=== PATIENT | female | born 1980 | race Caucasian/White ===

== ENCOUNTER 2020-06-09 21:52 | Outpatient (REF) | payer MEDICAID, SELFPAY ==
[2020-06-09 21:57] LABS: Abs Immature Grans 0.01 k/cumm (0.0-0.09); Absolute Basophil Count 0.02 k/cumm (0.0-0.2); Absolute Eosinophil Count 0.07 k/cumm (0.0-0.7); Absolute Lymphocyte Count 1.49 k/cumm (1.2-3.4); Absolute Monocyte Count 0.47 k/cumm (0.11-0.7); Absolute Neutrophil Count 5.65 k/cumm (1.2-6.7); Basophils % 0.3; Eosinophils % 0.9; HCT 39.7 % (36.0-46.0); HGB 13.3 g/dL (12.0-15.5); Immature Grans % 0.1 %; Lymphocytes % 19.3; Mean Corp. HGB Concentration 33.5 g/dL (32.0-36.0); Mean Corpuscular Hemoglobin 35.3 pg (27.0-33.0); Mean Corpuscular Volume 105.3 fL (80-95); Mean Platelet Volume 11.6 fL (8.0-11.0); Monocytes % 6.1; Neutrophils % 73.3; Platelet Count 245 x1000/uL (130-400); RBC 3.77 m/cumm (4.00-5.20); RBC Distribution Width 13.9 % (11.7-14.6); White Blood Cell Count 7.71 k/cumm (4.4-10.8)
[2020-06-09 22:15] LABS: ALT 23 U/L (14-59); AST 29 U/L (15-37); Albumin 4.1 g/dL (3.4-5.0); Alkaline Phosphatase 70 U/L (46-116); BUN 18 mg/dL (7-18); Bilirubin, Total 0.9 mg/dL (0.2-1.0); CREATININE 0.77 mg/dL (0.55-1.02); Calcium 9.2 mg/dL (8.5-10.1); Calculated LDL 72 mg/dL (<100); Chloride 101 mmol/L (98-107); Cholesterol 159 mg/dL (<200); Glucose 106 mg/dL (74-106); HDL Cholesterol 58 mg/dL (40-60); Potassium 3.9 mmol/L (3.5-5.1); Sodium 138 mmol/L (136-145); Total Protein 6.9 g/dL (6.4-8.2); Triglyceride 146 mg/dL (<150)
[2020-06-09 22:20] LABS: Macrocytosis 1+
== END 2020-06-09 22:12 ==
LOC: NCHCN 21:52
PROVIDERS: PCP Internal Medicine; Visit Provider Physician Assistant
DX: K62.5 Hemorrhage of anus and rectum (principal)
CPT/HCPCS: 80053; 80061; 84443; 85025

== ENCOUNTER 2022-10-09 11:57 | Outpatient (REF) | payer MEDICAID, SELFPAY ==
--- NOTE | 2022-10-09 11:15 | PAPFT_PTH ---
PATIENT: Cordelia Reyes LOC: [facility]#:[id number] AGE/SX: 42/F ROOM: RE10/09/[address]: Felicia Zhao : 1980 BED: DIS: 10/09/2022 SPEC #: [id number] RECD: 10/09/22 18:30 STATUS: PACO REQ #: [id number] DANIEL: 10/09/22 11:[address] Cytology RECD BY: Jennifer Mcginnis ENTERED: 10/09/22 18:30 SP TYPE: PAPFT OTHR DR: Osmin Monaco Tissues: 1 - CX/ENDOCX FOR PAP SMEARS Procedures: PAP THIN PREP/[facility] Screening HPV DNA PROBE Comments: (CHLAMYDIA/GC)
[2022-10-09 20:13] LABS: Hemoglobin A1C 5.1 % (<5.7)
[2022-10-09 20:25] LABS: ALT 40 U/L (14-59); AST 70 U/L (15-37); Albumin 4.4 g/dL (3.4-5.0); Alkaline Phosphatase 88 U/L (46-116); Anion Gap 10.3 mmol/L (3-11); BUN 19 mg/dL (7-18); Bilirubin, Total 2.3 mg/dL (0.2-1.0); CO2 26.7 mmol/L (21.0-32.0); CREATININE 0.9 mg/dL (0.55-1.02); Calcium 9.1 mg/dL (8.5-10.1); Calculated LDL 42 mg/dL (<100); Chloride 98 mmol/L (98-107); Cholesterol 119 mg/dL (<200); Estimated GFR 81.35 (mL/min/1.73m2); Glucose 119 mg/dL (74-106); HDL Cholesterol 53 mg/dL (40-60); Potassium 3.2 mmol/L (3.5-5.1); Sodium 135 mmol/L (136-145); Total Protein 7.8 g/dL (6.4-8.2); Triglyceride 121 mg/dL (<150)
[2022-10-10 15:35] LABS: Chlamydia Result Negative (Negative); GC Result Negative (Negative)
== END 2022-10-09 11:58 | disposition home or self-care (01) ==
LOC: NCHCN 11:57
PROVIDERS: PCP Internal Medicine; Visit Provider Nurse Practitioner Family
DX: R73.9 Hyperglycemia, unspecified (principal); Z13.220 Encounter for screening for lipoid disorders; Z11.3 Encounter for screening for infections with a predominantly sexual mode of transmission; Z12.4 Encounter for screening for malignant neoplasm of cervix; Z11.51 Encounter for screening for human papillomavirus (HPV); Z13.29 Encounter for screening for other suspected endocrine disorder; Z00.00 Encounter for general adult medical examination without abnormal findings
CPT/HCPCS: 80053; 80061; 87491; 87591; 88142; 83036; 84443; 87624

== ENCOUNTER 2025-07-13 16:20 | Outpatient (REF) | payer MEDICAID, SELFPAY ==
[2025-07-13 20:01] LABS: HCT 46.2 % (36.0-46.0); HGB 15.4 g/dL (11.2-15.7); MCH 30.4 pg (27.0-33.0); MCHC 33.3 % (32.0-36.0); MCV 91 fL (80-95); MPV 12.3 fL (8.0-11.0); Platelet Count 192 10^3/uL (130-400); RBC 5.07 10^6/uL (3.93-5.22); RDW 12.8 % (11.7-14.6); RDW-SD 42.1 fL; WBC 7.03 10^3/uL (4.4-10.8)
[2025-07-13 20:14] LABS: ALT 21 U/L (14-59); AST 24 U/L (15-37); Albumin 4.5 g/dL (3.4-5.0); Alkaline Phosphatase 59 U/L (46-116); Anion Gap 7.0 mmol/L (3-11); BUN 16 mg/dL (7-18); Bilirubin, Total 0.7 mg/dL (0.2-1.0); CO2 30.0 mmol/L (21.0-32.0); Calcium 10.2 mg/dL (8.5-10.1); Calculated LDL 148 mg/dL (<100); Chloride 103 mmol/L (98-107); Cholesterol 228 mg/dL (<200); Estimated GFR 91.97 (mL/min/1.73m2); Glucose 89 mg/dL (74-106); HDL Cholesterol 54 mg/dL (>or=50); Potassium 4.3 mmol/L (3.5-5.1); Sodium 140 mmol/L (136-145); Total Protein 7.9 g/dL (6.4-8.2); Triglyceride 133 mg/dL (<150)
[2025-07-14 19:51] LABS: Hepatitis C Ab w Rflx HCV PCR Negative (Negative)
[2025-07-14 20:00] LABS: HIV-1/2 Ag & Ab Screen Negative (Negative)
== END 2025-07-13 16:21 | disposition home or self-care (01) ==
LOC: NCHCN 16:20
PROVIDERS: PCP Internal Medicine; Visit Provider Nurse Practitioner Family
DX: Z11.4 Encounter for screening for human immunodeficiency virus [HIV] (principal); K62.5 Hemorrhage of anus and rectum; Z13.220 Encounter for screening for lipoid disorders; Z13.1 Encounter for screening for diabetes mellitus
CPT/HCPCS: 80053; 80061; 85027; 86803; 87389